=== PATIENT | male | born 2000 | race Caucasian/White ===

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

== ENCOUNTER 2021-04-03 16:15 | Emergency (ER) | payer OTHER ==
[2021-04-03 16:41] VITALS: BP 124/79; PULSE 103; RESP 19; TEMP 98.3
--- NOTE | 2021-04-03 17:42 | ED ---
General Adult HPI - General Chief complaint: Extremity Problem,Nontraumatic Stated complaint: foot pain Time Seen by Provider: 04/03/21 17:33 Source: patient, RN notes reviewed, old records reviewed Mode of arrival: ambulatory Limitations: no limitations - History of Present Illness Initial comments: This is a well-appearing 21-year-old male that presents to the emergency room with 2 weeks of a lump on the bottom of his left foot. He states that is causing him pain to walk. He denies any trauma. States his tetanus shot is up-to-date. He has a medical history of asthma only does not take any daily medications. -: week(s) (2) Location: left (Foot) Radiation: non-radiation Consistency: constant Improves with: rest Worsens with: other (Weightbearing) Associated Symptoms: denies other symptoms Treatments Prior to Arrival: none - Related Data Home Medications Medication Instructions Recorded Confirmed No Known Home Medications 09/10/17 09/10/17 Allergies Allergy/AdvReac Type Severity Reaction Status Date / Time No Known Allergies Allergy Verified 09/10/17 11:14 Review of Systems ROS Statement: Those systems with pertinent positive or pertinent negative responses have been documented in the HPI. ROS Other: All systems not noted in ROS Statement are negative. Past Medical History Past Medical History: Asthma History of Any Multi-Drug Resistant Organisms: None Reported Past Surgical History: No Surgical Hx Reported Past Psychological History: No Psychological Hx Reported Smoking Status: Never smoker Past Alcohol Use History: None Reported Past Drug Use History: None Reported General Exam Limitations: no limitations General appearance: alert, in no apparent distress Head exam: Present: atraumatic, normocephalic, normal inspection Eye exam: Present: normal appearance, EOMI Respiratory exam: Present: normal lung sounds bilaterally. Absent: respiratory distress, wheezes, rales, rhonchi, stridor Cardiovascular Exam: Present: regular rate, normal rhythm, normal heart sounds. Absent: systolic murmur, diastolic murmur, rubs, gallop, clicks GI/Abdominal exam: Present: soft, normal bowel sounds. Absent: distended, tenderness, guarding, rebound, rigid Extremities exam: Present: normal inspection, full ROM, normal capillary refill. Absent: tenderness, pedal edema, joint swelling, calf tenderness Left Foot/Toe exam: Present: tenderness (Left plantar's wart) Neurovascular tendon exam: Present: no vascular compromise. Absent: abnormal cap refill Neurological exam: Present: alert, oriented X3, CN II-XII intact Psychiatric exam: Present: normal affect, normal mood Skin exam: Present: warm, dry, intact, normal color. Absent: rash, cyanosis, diaphoretic, petechiae, pallor Course Vital Signs 04/03/21 16:38 Temperature 98.3 F Pulse Rate 103 H Respiratory 19 Rate Blood Pressure 124/79 O2 Sat by Pulse 100 Oximetry Medical Decision Making - Medical Decision Making Well-appearing 21-year-old male presents to the emergency room with a plantar's wart bottom of his left foot. Patient states been there for 2 weeks. There is no surrounding erythema or drainage. He has not tried any medications [id number]. He'll be directed to follow up with podiatry or try [id number] treatments. He denies any fevers and no other concerns. Tetanus is up-to-date. He denies any trauma or possible foreign body. Disposition Clinical Impression: Plantar wart of left foot Disposition: HOME SELF-CARE Condition: Good Instructions (If sedation given, give patient instructions): Plantar Wart (ED) Additional Instructions: You can try [id number] wart treatment or follow-up with podiatry as recommended. Is patient prescribed a controlled substance at d/c from ED?: No Referrals: None,Stated [Primary Care Provider] - 1-2 days José Miguel Tolbert DPM [STAFF PHYSICIAN] - 1-2 days Time of Disposition: 17:42
== END 2021-04-03 18:17 | disposition home or self-care (01) ==
LOC: EC 16:15
DX: B07.0 Plantar wart (principal); J45.909 Unspecified asthma, uncomplicated
CPT/HCPCS: 99282